=== PATIENT | female | born 1960 | race Caucasian/White ===

== ENCOUNTER 2021-07-29 11:44 | Inpatient (IN) ==
[2021-07-29] MEDS ORDERED: Dexamethasone IV 4 MG/ML VIAL 1 ml VIAL IV SLOW PU ONE (12:24)
[2021-07-29 12:44] LABS: ABS Lymphocytes 0.6 10^3/ul (1.0-4.8); ABS Monocytes 0.3 10^3/ul (0-0.8); ABS Neutrophils 2.3 10^3/ul (1.5-7.7); Eosinophil % 0.1 %; Hematocrit 36 % (35-47); Hemoglobin 12.8 g/dL (12.0-16.0); Lymphocyte % 19.4 %; Mean Corpuscular HGB Conc 35 g/dL (31-36); Mean Corpuscular Hemoglobin 29 pg (27-31); Mean Corpuscular Volume 83 fL (80-97); Mean Platelet Volume 6.9 fL (7.4-10.4); Nucleated Red Blood Cells % 0.2; Platelet Count 204 10^3/uL (150-450); Red Blood Count 4.35 10^6 /uL (3.70-4.87); Red Cell Distribution Width 13 % (10-15); White Blood Count 3.2 10^3/uL (3.5-10.8)
[2021-07-29 12:53] LABS: Activated Partial Thrombo Time 30.5 seconds (26.0-38.0); INR 1.08 (0.86-1.15)
[2021-07-29 13:05] LABS: Albumin 3.7 g/dL (3.2-5.2); Albumin/Globulin Ratio 1.4 (1-3); C Reactive Protein 51.15 mg/L (<8.01); Calcium 8.3 mg/dL (8.6-10.3); Globulin 2.7 g/dL (2-4); Potassium 3.4 mmol/L (3.5-5.0); Total Bilirubin 0.7 mg/dL (0.2-1.0); Total Protein 6.4 g/dL (6.4-8.9); Troponin I 0.01 ng/mL (<0.03)
[2021-07-29 13:29] LABS: Ferritin 818.6 ng/mL (11-307)
[2021-07-29 13:39] LABS: Venous Bicarbonate HCO3 27.4 mmol/L (24-28)
[2021-07-29] MEDS ORDERED: Remdesivir 100 mg Vial 200 MG in NS 0.9% 250 ml 210 ML IV ONE (13:51)
[2021-07-29 14:26] LABS: Magnesium 2.2 mg/dL (1.9-2.7); Phosphorus 3.1 mg/dL (2.5-5.0)
[2021-07-29] MEDS ORDERED: Potassium Chlor 20 meq TAB.ER PO ONE (16:07)
[2021-07-30 06:28] LABS: Hematocrit 38 % (35-47); Hemoglobin 13.4 g/dL (12.0-16.0); Mean Corpuscular HGB Conc 35 g/dL (31-36); Mean Corpuscular Hemoglobin 29 pg (27-31); Mean Corpuscular Volume 83 fL (80-97); Mean Platelet Volume 6.6 fL (7.4-10.4); Platelet Count 229 10^3/uL (150-450); Red Blood Count 4.54 10^6 /uL (3.70-4.87); Red Cell Distribution Width 13 % (10-15); White Blood Count 2.4 10^3/uL (3.5-10.8)
[2021-07-30 06:34] LABS: INR 1.04 (0.86-1.15)
[2021-07-30 06:48] LABS: Albumin 3.5 g/dL (3.2-5.2); Albumin/Globulin Ratio 1.3 (1-3); Calcium 8.5 mg/dL (8.6-10.3); Globulin 2.7 g/dL (2-4); Magnesium 2.4 mg/dL (1.9-2.7); Phosphorus 3.6 mg/dL (2.5-5.0); Potassium 4.3 mmol/L (3.5-5.0); Total Bilirubin 0.5 mg/dL (0.2-1.0); Total Protein 6.2 g/dL (6.4-8.9); eGFR CKD-EPI 104.6 (>60)
[2021-07-30] MEDS: Dexamethasone IV 4 MG/ML VIAL 1 ml VIAL IV SLOW PU SCH (08:24)
[2021-07-30] MEDS: Remdesivir 100 mg Vial 100 MG in NS 0.9% 250 ml 230 ML IV SCH (20:51)
[2021-07-31] MEDS: Dexamethasone IV 4 MG/ML VIAL 1 ml VIAL IV SLOW PU SCH (08:06)
[2021-07-31 09:43] LABS: INR 1.06 (0.86-1.15)
[2021-07-31 09:52] LABS: Albumin 3.7 g/dL (3.2-5.2); Albumin/Globulin Ratio 1.4 (1-3); Calcium 8.6 mg/dL (8.6-10.3); Globulin 2.7 g/dL (2-4); Potassium 3.8 mmol/L (3.5-5.0); Total Bilirubin 0.6 mg/dL (0.2-1.0); Total Protein 6.4 g/dL (6.4-8.9); eGFR CKD-EPI 106.5 (>60)
[2021-07-31] MEDS ORDERED: Enoxaparin 40 MG/0.4 ML SYR SUBCUT SCH (13:00)
[2021-07-31] MEDS: Remdesivir 100 mg Vial 100 MG in NS 0.9% 250 ml 230 ML IV SCH (21:18)
[2021-08-01 06:08] LABS: INR 1.12 (0.86-1.15)
[2021-08-01 06:16] LABS: Albumin 3.1 g/dL (3.2-5.2); Albumin/Globulin Ratio 1.3 (1-3); Globulin 2.3 g/dL (2-4); Total Bilirubin 0.5 mg/dL (0.2-1.0); Total Protein 5.4 g/dL (6.4-8.9); eGFR CKD-EPI 111.4 (>60)
[2021-08-01 08:39] VITALS: BP 94/47
[2021-08-01 11:06] LABS: TSH Ultra Thyroid Stim Horm 0.04 mcIU/mL (0.34-5.60)
== END 2021-08-01 14:09 | disposition home or self-care (01) | DRG 177 ==
LOC: ED 11:44 → EDHOLD 11:44 → SUATTDRO 13:51 → MED 17:09 → SUATTDRO 07-30 15:31
PROVIDERS: ADMIT Internal Medicine; ATTEND Internal Medicine